=== PATIENT | male | born 1970 ===

== ENCOUNTER 2021-09-04 16:11 | Inpatient (IN) ==
[2021-09-04] MEDS ORDERED: SODIUM CHLORIDE 0.9% 1,000 ML IV STA (16:38)
[2021-09-04] MEDS ORDERED: IMIPENEM/CILASTATIN 1,000 MG in SODIUM CHLORIDE 0.9% 250 ML IV STA (16:40)
[2021-09-04] MEDS ORDERED: GLUCAGON 1 MG VIAL IM PRN (17:16)
[2021-09-04] MEDS ORDERED: DEXTROSE 50% 25 GM/50 ML VIAL IV PRN (17:16)
[2021-09-04] MEDS ORDERED: PROMETHAZINE 25 MG/1 ML VIAL IM PRN (17:39)
[2021-09-04] MEDS ORDERED: ONDANSETRON 4 MG/2 ML VIAL IV PRN (17:39)
[2021-09-04] MEDS ORDERED: SIMETHICONE CHEW 125 MG TABLET PO PRN (17:39)
[2021-09-04] MEDS ORDERED: DEXTROSE 10% 250 ML BAG IV PRN (18:07)
[2021-09-04 18:15] LABS: Basophils # 0.1 10*3/uL (0.0-0.2); Basophils % 0.2 % (0.0-0.8); Eosinophils % 0.1 % (0.00-10.9); Hematocrit 31.5 VOL% (42.0-52.0); Hemoglobin 10.8 GM/DL (14.0-18.0); Immature Granulocytes % 1.2 %; Immature Granulocytes Absolute 0.29 #; Lymphocytes # 1.3 10*3/uL (1.4-4.0); Lymphocytes % 5.1 % (21.2-54.2); Mean Corpuscular HGB Conc 34.3 GM/DL (32-36); Mean Corpuscular Volume 83.1 FL (87-102); Mean Platelet Volume 10.5 FL (9.6-12.0); Monocytes % 7.2 % (1.7-12.7); Neutrophils % 86.2 % (38.7-73.9); Platelet Count 369 T/CUMM (130-400); Red Blood Count 3.79 MC/CUMM (3.8-5.5); Red Cell Distribution Width 12.1 % (9.3-17.3); White Blood Count 24.6 T/CUMM (4-12)
[2021-09-04] MEDS ORDERED: VANCOMYCIN INJ 1,250 MG in SODIUM CHLORIDE 0.9% 250 ML IV STA (18:17)
[2021-09-04 18:41] LABS: Alanine Aminotransferase 14 U/L (16-61); Albumin 2.1 G/DL (3.4-5.0); Alkaline Phosphatase 103 U/L (45-117); Aspartate Amino Transferase 15 U/L (0-37); Bilirubin,Total < 0.39 MG/DL (0.20-1.00); Blood Urea Nitrogen 34 MG/DL (7-18); Calcium 8.1 MG/DL (8.5-10.1); Carbon Dioxide 25 MMOL/L (21-32); Estimated Glom Filtration Rate 52 ML/MIN; Glucose 229 MG/DL (74-106); Osmolality,Calculated 261.8 MOS/KG (273-304); Potassium 3.9 MMOL/L (3.5-5.1); Sodium 123 MMOL/L (136-145); Total Protein 7.2 G/DL (6.4-8.2)
[2021-09-04 18:48] LABS: Lymphocytes 3 % (20-55); Segmented Neutrophils 94 % (50-85); Total Cells Counted 100
[2021-09-04 18:49] LABS: Anisocytosis Slight; Platelet Estimate Adequate
[2021-09-04 18:50] LABS: Microcytosis Slight
[2021-09-04] MEDS ORDERED: VANCOMYCIN INJ 1,250 MG in SODIUM CHLORIDE 0.9% 250 ML IV PRN (18:56)
[2021-09-04] MEDS: ENOXAPARIN 40 MG/0.4 ML SYRINGE SUBCUT SCH (21:11)
[2021-09-04] MEDS: DOCUSATE SODIUM 100 MG CAPSULE PO SCH (21:11)
[2021-09-04] MEDS: CEFEPIME 1,000 MG in SODIUM CHLORIDE 0.9% 100 ML IV SCH (21:12)
[2021-09-04] MEDS: SODIUM CHLORIDE 0.9% 1,000 ML IV SCH (21:12)
[2021-09-04] MEDS: INSULIN GLARGINE 100 UNIT/ML SUBCUT SCH (22:03)
[2021-09-04] MEDS: INSULIN LISPRO 100 UNIT/ML SUBCUT SCH (22:03)
[2021-09-05] MEDS: SODIUM CHLORIDE 0.9% 1,000 ML IV SCH ×3 (01:32→19:49)
[2021-09-05] MEDS: CEFEPIME 1,000 MG in SODIUM CHLORIDE 0.9% 100 ML IV SCH ×3 (05:21→17:33)
[2021-09-05 06:02] LABS: Basophils # 0.1 10*3/uL (0.0-0.2); Basophils % 0.2 % (0.0-0.8); Eosinophils # 0.1 10*3/uL (0.0-0.87); Eosinophils % 0.4 % (0.00-10.9); Hematocrit 29.5 VOL% (42.0-52.0); Hemoglobin 9.9 GM/DL (14.0-18.0); Immature Granulocytes Absolute 0.21 #; Lymphocytes % 4.7 % (21.2-54.2); Mean Corpuscular HGB Conc 33.6 GM/DL (32-36); Mean Corpuscular Volume 83.8 FL (87-102); Mean Platelet Volume 10.6 FL (9.6-12.0); Monocytes % 9.9 % (1.7-12.7); Neutrophils % 83.8 % (38.7-73.9); Platelet Count 376 T/CUMM (130-400); Red Blood Count 3.52 MC/CUMM (3.8-5.5); Red Cell Distribution Width 12.1 % (9.3-17.3); White Blood Count 20.8 T/CUMM (4-12)
[2021-09-05 06:31] LABS: Alanine Aminotransferase 13 U/L (16-61); Albumin 1.7 G/DL (3.4-5.0); Alkaline Phosphatase 89 U/L (45-117); Aspartate Amino Transferase 15 U/L (0-37); Bilirubin,Total < 0.39 MG/DL (0.20-1.00); Blood Urea Nitrogen 27 MG/DL (7-18); Calcium 7.4 MG/DL (8.5-10.1); Carbon Dioxide 25 MMOL/L (21-32); Estimated Glom Filtration Rate 61 ML/MIN; Glucose 159 MG/DL (74-106); HDL Cholesterol 16 MG/DL (40-60); Osmolality,Calculated 265.9 MOS/KG (273-304); Potassium 3.9 MMOL/L (3.5-5.1); Risk Ratio 4.63; Sodium 129 MMOL/L (136-145); Thyroid Stimulating Hormone 0.327 uIU/ml (0.358-3.74); Total Protein 6.5 G/DL (6.4-8.2); Triglycerides 140 MG/DL (2-150)
[2021-09-05 06:38] LABS: Mucus,Urine Occasional /LPF (Occasional); RBC,Urine 2 /HPF (0-4)
[2021-09-05 06:40] LABS: Bilirubin,Urine Negative (Negative); Blood, Urine Trace mg/dL (Negative); Glucose,Urine (UA) 100 mg/dL (Negative); Ketones,Urine Negative (Negative); Nitrite,Urine Negative (Negative); Protein,Urine 100 mg/dL (Negative); Urine Appearance Clear (Clear); Urine Color Yellow (Yellow); Urine Specific Gravity 1.015 (1.001-1.035); Urine Urobilinogen 0.2 eU/dL (<2.0); Urine pH 5.5 (4.5-8.0)
[2021-09-05 07:15] LABS: Band Neutrophils 1 % (0-10); Eosinophils 1 % (0-10); Lymphocytes 5 % (20-55); Segmented Neutrophils 80 % (50-85); Total Cells Counted 100
[2021-09-05 07:18] LABS: Platelet Estimate Adequate; Stomatocytes Slight
[2021-09-05] MEDS: DOCUSATE SODIUM 100 MG CAPSULE PO SCH ×2 (09:26→20:30)
[2021-09-05] MEDS: PANTOPRAZOLE 40 MG VIAL IV SCH (09:26)
[2021-09-05] MEDS: INSULIN LISPRO 100 UNIT/ML SUBCUT SCH ×4 (09:30→20:31)
[2021-09-05] MEDS: VANCOMYCIN INJ 1,000 MG in SODIUM CHLORIDE 0.9% 250 ML IV SCH ×2 (09:49→22:18)
[2021-09-05] MEDS ORDERED: LIDOCAINE 1% 50 ML VIAL ONE (11:17)
[2021-09-05] MEDS ORDERED: fentaNYL 100 MCG/2 ML VIAL ONE (11:23)
[2021-09-05] MEDS ORDERED: propofoL 200 MG/20 ML VIAL IV ONE (11:23)
[2021-09-05] MEDS ORDERED: LIDOCAINE 2% 5 ML VIAL ONE (11:23)
[2021-09-05] MEDS ORDERED: SEVOFLURANE 1 UNIT/15 MINUTE INH ONE ×3 (11:23→12:08)
[2021-09-05] MEDS ORDERED: MIDAZOLAM 2 MG/2 ML VIAL ONE (11:23)
[2021-09-05] MEDS ORDERED: DEXAMETHASONE 4 MG/1 ML VIAL ONE (11:24)
[2021-09-05] MEDS ORDERED: ONDANSETRON 4 MG/2 ML VIAL ONE (11:24)
[2021-09-05] MEDS ORDERED: ACETAMINOPHEN INJ 1,000 MG/100 ML VIAL IV ONE (11:24)
[2021-09-05] MEDS ORDERED: SODIUM CHLORIDE 0.9% 1,000 ML IV SCH (11:30)
[2021-09-05] MEDS ORDERED: PHENYLEPHRINE 1 MG/10 ML SYRINGE IV ONE ×2 (11:50→12:07)
[2021-09-05] MEDS ORDERED: ePHEDrine 50 MG/ML VIAL ONE (12:06)
[2021-09-05] MEDS: ENOXAPARIN 40 MG/0.4 ML SYRINGE SUBCUT SCH (17:34)
[2021-09-05] MEDS: INSULIN GLARGINE 100 UNIT/ML SUBCUT SCH (20:30)
[2021-09-06] MEDS: CEFEPIME 1,000 MG in SODIUM CHLORIDE 0.9% 100 ML IV SCH ×4 (00:18→17:37)
[2021-09-06] MEDS: SODIUM CHLORIDE 0.9% 1,000 ML IV SCH ×3 (04:38→22:04)
[2021-09-06 06:13] LABS: Basophils # 0.1 10*3/uL (0.0-0.2); Basophils % 0.3 % (0.0-0.8); Eosinophils # 0.1 10*3/uL (0.0-0.87); Eosinophils % 0.3 % (0.00-10.9); Hematocrit 27.1 VOL% (42.0-52.0); Immature Granulocytes % 1.7 %; Immature Granulocytes Absolute 0.34 #; Lymphocytes # 1.8 10*3/uL (1.4-4.0); Lymphocytes % 9.2 % (21.2-54.2); Mean Corpuscular HGB Conc 33.2 GM/DL (32-36); Mean Corpuscular Volume 85.8 FL (87-102); Mean Platelet Volume 10.2 FL (9.6-12.0); Monocytes % 10.7 % (1.7-12.7); Neutrophils % 77.8 % (38.7-73.9); Platelet Count 411 T/CUMM (130-400); Red Blood Count 3.16 MC/CUMM (3.8-5.5); Red Cell Distribution Width 12.5 % (9.3-17.3); White Blood Count 19.8 T/CUMM (4-12)
[2021-09-06 06:35] LABS: Alanine Aminotransferase 13 U/L (16-61); Albumin 1.7 G/DL (3.4-5.0); Alkaline Phosphatase 86 U/L (45-117); Aspartate Amino Transferase 12 U/L (0-37); Bilirubin,Total < 0.39 MG/DL (0.20-1.00); Blood Urea Nitrogen 22 MG/DL (7-18); Calcium 7.3 MG/DL (8.5-10.1); Carbon Dioxide 27 MMOL/L (21-32); Estimated Glom Filtration Rate 73 ML/MIN; Glucose 239 MG/DL (74-106); Osmolality,Calculated 272.7 MOS/KG (273-304); Potassium 4.2 MMOL/L (3.5-5.1); Sodium 131 MMOL/L (136-145); Total Protein 6.1 G/DL (6.4-8.2)
[2021-09-06] MEDS: DOCUSATE SODIUM 100 MG CAPSULE PO SCH ×2 (08:39→21:07)
[2021-09-06] MEDS: PANTOPRAZOLE 40 MG VIAL IV SCH (08:39)
[2021-09-06] MEDS: INSULIN LISPRO 100 UNIT/ML SUBCUT SCH ×4 (08:39→20:34)
[2021-09-06] MEDS ORDERED: DAPAGLIFLOZIN 5 MG TABLET PO SCH (09:00)
[2021-09-06] MEDS: VANCOMYCIN INJ 1,000 MG in SODIUM CHLORIDE 0.9% 250 ML IV SCH ×2 (10:58→22:05)
[2021-09-06] MEDS: SODIUM HYPOCHLORITE 0.25% IRRIG 473 ML BOTTLE TOP SCH (15:50)
[2021-09-06] MEDS: ENOXAPARIN 40 MG/0.4 ML SYRINGE SUBCUT SCH (18:52)
[2021-09-06] MEDS: INSULIN GLARGINE 100 UNIT/ML SUBCUT SCH (21:07)
[2021-09-07] MEDS: CEFEPIME 1,000 MG in SODIUM CHLORIDE 0.9% 100 ML IV SCH ×5 (00:54→23:32)
[2021-09-07] MEDS: SODIUM CHLORIDE 0.9% 1,000 ML IV SCH ×2 (04:43→17:33)
[2021-09-07 05:30] LABS: Basophils # 0.1 10*3/uL (0.0-0.2); Basophils % 0.4 % (0.0-0.8); Eosinophils # 0.4 10*3/uL (0.0-0.87); Eosinophils % 2.4 % (0.00-10.9); Hematocrit 28.5 VOL% (42.0-52.0); Hemoglobin 9.2 GM/DL (14.0-18.0); Immature Granulocytes Absolute 0.29 #; Lymphocytes # 2.1 10*3/uL (1.4-4.0); Lymphocytes % 14.7 % (21.2-54.2); Mean Corpuscular HGB Conc 32.3 GM/DL (32-36); Mean Platelet Volume 10.1 FL (9.6-12.0); Monocytes % 12.8 % (1.7-12.7); Neutrophils % 67.7 % (38.7-73.9); Platelet Count 456 T/CUMM (130-400); Red Blood Count 3.24 MC/CUMM (3.8-5.5); Red Cell Distribution Width 12.7 % (9.3-17.3); White Blood Count 14.4 T/CUMM (4-12)
[2021-09-07 05:47] LABS: Alanine Aminotransferase 19 U/L (16-61); Albumin 1.7 G/DL (3.4-5.0); Alkaline Phosphatase 80 U/L (45-117); Aspartate Amino Transferase 18 U/L (0-37); Bilirubin,Total < 0.39 MG/DL (0.20-1.00); Blood Urea Nitrogen 14 MG/DL (7-18); Calcium 7.6 MG/DL (8.5-10.1); Carbon Dioxide 25 MMOL/L (21-32); Estimated Glom Filtration Rate 103 ML/MIN; Glucose 107 MG/DL (74-106); Potassium 4.3 MMOL/L (3.5-5.1); Sodium 136 MMOL/L (136-145); Total Protein 6.3 G/DL (6.4-8.2)
[2021-09-07] MEDS: INSULIN LISPRO 100 UNIT/ML SUBCUT SCH ×4 (07:49→20:22)
[2021-09-07] MEDS ORDERED: DAPAGLIFLOZIN 10 MG TABLET PO SCH (09:00)
[2021-09-07] MEDS: VANCOMYCIN INJ 1,000 MG in SODIUM CHLORIDE 0.9% 250 ML IV SCH ×2 (09:22→21:01)
[2021-09-07] MEDS: PANTOPRAZOLE 40 MG VIAL IV SCH (09:22)
[2021-09-07] MEDS: CHOLECALCIFEROL 1,000 UNIT TABLET PO SCH (09:22)
[2021-09-07] MEDS: DOCUSATE SODIUM 100 MG CAPSULE PO SCH ×2 (09:22→21:00)
[2021-09-07] MEDS: SODIUM HYPOCHLORITE 0.25% IRRIG 473 ML BOTTLE TOP SCH ×2 (09:23→09:58)
[2021-09-07] MEDS ORDERED: LACTULOSE 20 GM/30 ML UDCUP PO ONE (15:17)
[2021-09-07] MEDS: ENOXAPARIN 40 MG/0.4 ML SYRINGE SUBCUT SCH (17:34)
[2021-09-07] MEDS: hydrALAZINE 20 MG/1 ML VIAL IV PRN (17:36)
[2021-09-07] MEDS: INSULIN GLARGINE 100 UNIT/ML SUBCUT SCH (21:01)
[2021-09-07] MEDS: POLYETHYLENE GLYCOL POWDER 17 GM PACK PO SCH (21:01)
[2021-09-08] MEDS: CEFEPIME 1,000 MG in SODIUM CHLORIDE 0.9% 100 ML IV SCH ×4 (05:59→23:08)
[2021-09-08] MEDS: SODIUM CHLORIDE 0.9% 1,000 ML IV SCH (06:01)
[2021-09-08 07:03] LABS: Basophils # 0.1 10*3/uL (0.0-0.2); Basophils % 0.6 % (0.0-0.8); Eosinophils # 0.2 10*3/uL (0.0-0.87); Eosinophils % 1.7 % (0.00-10.9); Hemoglobin 10.3 GM/DL (14.0-18.0); Immature Granulocytes % 2.6 %; Immature Granulocytes Absolute 0.35 #; Lymphocytes # 1.7 10*3/uL (1.4-4.0); Lymphocytes % 12.4 % (21.2-54.2); Mean Corpuscular HGB Conc 32.2 GM/DL (32-36); Mean Corpuscular Volume 86.5 FL (87-102); Mean Platelet Volume 9.4 FL (9.6-12.0); Monocytes % 13.4 % (1.7-12.7); Neutrophils % 69.3 % (38.7-73.9); Platelet Count 495 T/CUMM (130-400); Red Cell Distribution Width 12.4 % (9.3-17.3); White Blood Count 13.7 T/CUMM (4-12)
[2021-09-08 07:20] LABS: Albumin 1.8 G/DL (3.4-5.0); Bilirubin,Total 0.4 MG/DL (0.20-1.00); Calcium 7.9 MG/DL (8.5-10.1); Osmolality,Calculated 266.1 MOS/KG (273-304); Potassium 3.7 MMOL/L (3.5-5.1); Total Protein 6.4 G/DL (6.4-8.2)
[2021-09-08] MEDS: PANTOPRAZOLE 40 MG VIAL IV SCH (10:09)
[2021-09-08] MEDS: VANCOMYCIN INJ 1,000 MG in SODIUM CHLORIDE 0.9% 250 ML IV SCH ×2 (10:13→21:16)
[2021-09-08] MEDS: CHOLECALCIFEROL 1,000 UNIT TABLET PO SCH (10:22)
[2021-09-08] MEDS: POLYETHYLENE GLYCOL POWDER 17 GM PACK PO SCH ×2 (10:23→21:14)
[2021-09-08] MEDS: DOCUSATE SODIUM 100 MG CAPSULE PO SCH ×2 (10:23→21:13)
[2021-09-08] MEDS: SODIUM HYPOCHLORITE 0.25% IRRIG 473 ML BOTTLE TOP SCH (10:25)
[2021-09-08] MEDS: INSULIN LISPRO 100 UNIT/ML SUBCUT SCH ×4 (10:38→21:50)
[2021-09-08] MEDS: LOSARTAN 25 MG TABLET PO SCH (12:49)
[2021-09-08] MEDS: ENOXAPARIN 40 MG/0.4 ML SYRINGE SUBCUT SCH (17:30)
[2021-09-08] MEDS: INSULIN GLARGINE 100 UNIT/ML SUBCUT SCH (21:51)
[2021-09-09] MEDS: CEFEPIME 1,000 MG in SODIUM CHLORIDE 0.9% 100 ML IV SCH ×3 (05:37→17:56)
[2021-09-09 05:39] LABS: Basophils # 0.1 10*3/uL (0.0-0.2); Basophils % 0.4 % (0.0-0.8); Eosinophils # 0.3 10*3/uL (0.0-0.87); Eosinophils % 2.4 % (0.00-10.9); Hematocrit 34.1 VOL% (42.0-52.0); Hemoglobin 10.9 GM/DL (14.0-18.0); Immature Granulocytes % 3.9 %; Immature Granulocytes Absolute 0.56 #; Lymphocytes # 2.1 10*3/uL (1.4-4.0); Lymphocytes % 14.7 % (21.2-54.2); Mean Corpuscular Volume 88.6 FL (87-102); Mean Platelet Volume 9.8 FL (9.6-12.0); Monocytes % 11.4 % (1.7-12.7); Neutrophils % 67.2 % (38.7-73.9); Platelet Count 555 T/CUMM (130-400); Red Blood Count 3.85 MC/CUMM (3.8-5.5); Red Cell Distribution Width 12.7 % (9.3-17.3); White Blood Count 14.3 T/CUMM (4-12)
[2021-09-09 05:56] LABS: Alanine Aminotransferase 34 U/L (16-61); Albumin 1.9 G/DL (3.4-5.0); Alkaline Phosphatase 90 U/L (45-117); Aspartate Amino Transferase 24 U/L (0-37); Bilirubin,Total < 0.39 MG/DL (0.20-1.00); Blood Urea Nitrogen 10 MG/DL (7-18); Calcium 8.3 MG/DL (8.5-10.1); Carbon Dioxide 28 MMOL/L (21-32); Estimated Glom Filtration Rate 91 ML/MIN; Glucose 104 MG/DL (74-106); Osmolality,Calculated 266.2 MOS/KG (273-304); Potassium 3.4 MMOL/L (3.5-5.1); Sodium 134 MMOL/L (136-145); Total Protein 7.2 G/DL (6.4-8.2)
[2021-09-09 06:01] LABS: Eosinophils 2 % (0-10); Hypochromia Slight; Lymphocytes 9 % (20-55); Microcytosis Slight; Nucleated Red Blood Cells 1 (0-5); Platelet Estimate Adequate; Segmented Neutrophils 79 % (50-85); Total Cells Counted 100
[2021-09-09] MEDS: INSULIN LISPRO 100 UNIT/ML SUBCUT SCH ×4 (07:44→21:23)
[2021-09-09] MEDS: PANTOPRAZOLE 40 MG VIAL IV SCH (08:28)
[2021-09-09] MEDS: SODIUM HYPOCHLORITE 0.25% IRRIG 473 ML BOTTLE TOP SCH (08:29)
[2021-09-09] MEDS: CHOLECALCIFEROL 1,000 UNIT TABLET PO SCH (08:29)
[2021-09-09] MEDS: LOSARTAN 25 MG TABLET PO SCH (08:29)
[2021-09-09] MEDS ORDERED: POTASSIUM CHLORIDE 20 MEQ TABLET PO ONE (08:30)
[2021-09-09] MEDS: DOCUSATE SODIUM 100 MG CAPSULE PO SCH ×2 (09:02→21:25)
[2021-09-09] MEDS: POLYETHYLENE GLYCOL POWDER 17 GM PACK PO SCH ×2 (09:02→21:26)
[2021-09-09] MEDS: ENOXAPARIN 40 MG/0.4 ML SYRINGE SUBCUT SCH (17:56)
[2021-09-09] MEDS: INSULIN GLARGINE 100 UNIT/ML SUBCUT SCH (21:23)
[2021-09-10] MEDS: CEFEPIME 1,000 MG in SODIUM CHLORIDE 0.9% 100 ML IV SCH ×5 (00:24→23:56)
[2021-09-10 06:09] LABS: Basophils # 0.1 10*3/uL (0.0-0.2); Basophils % 0.5 % (0.0-0.8); Eosinophils # 0.3 10*3/uL (0.0-0.87); Eosinophils % 2.8 % (0.00-10.9); Hematocrit 30.4 VOL% (42.0-52.0); Hemoglobin 9.8 GM/DL (14.0-18.0); Immature Granulocytes % 3.4 %; Lymphocytes # 1.8 10*3/uL (1.4-4.0); Lymphocytes % 14.8 % (21.2-54.2); Mean Corpuscular HGB Conc 32.2 GM/DL (32-36); Mean Corpuscular Volume 87.6 FL (87-102); Mean Platelet Volume 9.5 FL (9.6-12.0); Neutrophils % 66.5 % (38.7-73.9); Platelet Count 500 T/CUMM (130-400); Red Blood Count 3.47 MC/CUMM (3.8-5.5); Red Cell Distribution Width 12.8 % (9.3-17.3); White Blood Count 11.9 T/CUMM (4-12)
[2021-09-10 06:32] LABS: Alanine Aminotransferase 24 U/L (16-61); Albumin 1.8 G/DL (3.4-5.0); Alkaline Phosphatase 76 U/L (45-117); Aspartate Amino Transferase 16 U/L (0-37); Bilirubin,Total < 0.39 MG/DL (0.20-1.00); Blood Urea Nitrogen 11 MG/DL (7-18); Calcium 8.2 MG/DL (8.5-10.1); Carbon Dioxide 28 MMOL/L (21-32); Estimated Glom Filtration Rate 103 ML/MIN; Glucose 171 MG/DL (74-106); Osmolality,Calculated 272.1 MOS/KG (273-304); Potassium 4.2 MMOL/L (3.5-5.1); Sodium 135 MMOL/L (136-145); Total Protein 6.7 G/DL (6.4-8.2)
[2021-09-10] MEDS ORDERED: ETOMIDATE 40 MG/20 ML VIAL IV ONE (08:03)
[2021-09-10] MEDS ORDERED: MIDAZOLAM 2 MG/2 ML VIAL ONE (08:03)
[2021-09-10] MEDS ORDERED: LIDOCAINE 2% 5 ML VIAL ONE (08:03)
[2021-09-10] MEDS ORDERED: SODIUM CHLORIDE 0.9% 100 ML IV ONE (08:03)
[2021-09-10] MEDS ORDERED: fentaNYL 100 MCG/2 ML VIAL ONE (08:03)
[2021-09-10] MEDS ORDERED: propofoL 200 MG/20 ML VIAL IV ONE (08:03)
[2021-09-10] MEDS ORDERED: LIDOCAINE 1% 50 ML VIAL ONE (08:14)
[2021-09-10] MEDS ORDERED: LACTATED RINGERS 1,000 ML IV SCH (08:30)
[2021-09-10] MEDS ORDERED: BUPIVACAINE MPF 0.25% 30 ML VIAL ONE (08:43)
[2021-09-10] MEDS: INSULIN LISPRO 100 UNIT/ML SUBCUT SCH ×4 (09:32→21:36)
[2021-09-10] MEDS: PANTOPRAZOLE 40 MG VIAL IV SCH (09:33)
[2021-09-10] MEDS: SODIUM HYPOCHLORITE 0.25% IRRIG 473 ML BOTTLE TOP SCH (09:33)
[2021-09-10] MEDS: DOCUSATE SODIUM 100 MG CAPSULE PO SCH ×2 (09:33→21:38)
[2021-09-10] MEDS: LOSARTAN 25 MG TABLET PO SCH (09:33)
[2021-09-10] MEDS: CHOLECALCIFEROL 1,000 UNIT TABLET PO SCH (09:34)
[2021-09-10] MEDS: POLYETHYLENE GLYCOL POWDER 17 GM PACK PO SCH ×2 (09:38→21:38)
[2021-09-10] MEDS: hydrALAZINE 20 MG/1 ML VIAL IV PRN (17:05)
[2021-09-10] MEDS: ENOXAPARIN 40 MG/0.4 ML SYRINGE SUBCUT SCH (17:35)
[2021-09-10] MEDS: INSULIN GLARGINE 100 UNIT/ML SUBCUT SCH (21:36)
[2021-09-11] MEDS: CEFEPIME 1,000 MG in SODIUM CHLORIDE 0.9% 100 ML IV SCH ×2 (05:23→12:39)
[2021-09-11] MEDS: DOCUSATE SODIUM 100 MG CAPSULE PO SCH ×2 (08:22→20:30)
[2021-09-11] MEDS: CHOLECALCIFEROL 1,000 UNIT TABLET PO SCH (08:22)
[2021-09-11] MEDS: POLYETHYLENE GLYCOL POWDER 17 GM PACK PO SCH ×2 (08:22→20:30)
[2021-09-11] MEDS: LOSARTAN 25 MG TABLET PO SCH (08:22)
[2021-09-11] MEDS: INSULIN LISPRO 100 UNIT/ML SUBCUT SCH ×4 (08:22→20:31)
[2021-09-11] MEDS: PANTOPRAZOLE 40 MG VIAL IV SCH (08:22)
[2021-09-11] MEDS: SODIUM HYPOCHLORITE 0.25% IRRIG 473 ML BOTTLE TOP SCH (08:23)
[2021-09-11] MEDS: LEVOFLOXACIN 500 MG TABLET PO SCH (14:22)
[2021-09-11] MEDS: CLINDAMYCIN 300 MG CAPSULE PO SCH (16:21)
[2021-09-11] MEDS: ENOXAPARIN 40 MG/0.4 ML SYRINGE SUBCUT SCH (17:30)
[2021-09-11] MEDS: INSULIN GLARGINE 100 UNIT/ML SUBCUT SCH (20:52)
[2021-09-12 05:53] LABS: Basophils # 0.1 10*3/uL (0.0-0.2); Basophils % 0.5 % (0.0-0.8); Eosinophils # 0.3 10*3/uL (0.0-0.87); Eosinophils % 2.8 % (0.00-10.9); Hematocrit 29.9 VOL% (42.0-52.0); Hemoglobin 9.5 GM/DL (14.0-18.0); Immature Granulocytes % 1.4 %; Immature Granulocytes Absolute 0.13 #; Lymphocytes # 1.5 10*3/uL (1.4-4.0); Lymphocytes % 15.9 % (21.2-54.2); Mean Corpuscular HGB Conc 31.8 GM/DL (32-36); Mean Corpuscular Volume 87.9 FL (87-102); Mean Platelet Volume 9.9 FL (9.6-12.0); Monocytes % 12.4 % (1.7-12.7); Platelet Count 543 T/CUMM (130-400); Red Cell Distribution Width 12.4 % (9.3-17.3); White Blood Count 9.5 T/CUMM (4-12)
[2021-09-12 06:14] LABS: Osmolality,Calculated 270.1 MOS/KG (273-304); Potassium 3.8 MMOL/L (3.5-5.1)
[2021-09-12] MEDS: SODIUM HYPOCHLORITE 0.25% IRRIG 473 ML BOTTLE TOP SCH (08:59)
[2021-09-12] MEDS: INSULIN LISPRO 100 UNIT/ML SUBCUT SCH ×2 (08:59→13:08)
[2021-09-12] MEDS: DOCUSATE SODIUM 100 MG CAPSULE PO SCH (08:59)
[2021-09-12] MEDS: LOSARTAN 25 MG TABLET PO SCH (08:59)
[2021-09-12] MEDS: CLINDAMYCIN 300 MG CAPSULE PO SCH ×2 (08:59→12:43)
[2021-09-12] MEDS: LEVOFLOXACIN 500 MG TABLET PO SCH (09:00)
[2021-09-12] MEDS: POLYETHYLENE GLYCOL POWDER 17 GM PACK PO SCH (09:00)
[2021-09-12] MEDS: CHOLECALCIFEROL 1,000 UNIT TABLET PO SCH (09:00)
[2021-09-12] MEDS: PANTOPRAZOLE 40 MG VIAL IV SCH (09:00)
[2021-09-12] MEDS ORDERED: cloNIDine 0.1 MG TABLET PO ONE (09:15)
[2021-09-12] MEDS ORDERED: amLODIPine 10 MG TABLET PO SCH (09:30)
[2021-09-12 11:40] VITALS: BP 152/87
== END 2021-09-12 14:30 | disposition home or self-care (01) | DRG 240 ==
LOC: EDUNIT# → EDBD → N.ED 16:11 → N.EDINP 18:20 → SUATTDRO 18:20 → N.EDINP 18:38 → N.3E 19:23
PROVIDERS: ADMIT Internal Medicine; ATTEND Hospitalist